=== PATIENT | female | born 1945 | race Caucasian/White ===

== ENCOUNTER 2018-06-29 12:47 | Observation (INO) | payer BC, MEDICARE ==
[2018-06-29] MEDS ORDERED: ACETAMINOPHEN 1,000 MG/100 ML BTL IVPB ONE (13:00)
[2018-06-29] MEDS ORDERED: ONDANSETRON HCL IV 4 MG/2 ML VIAL IVP ONE ×2 (13:00→16:11)
[2018-06-29] MEDS ORDERED: 0.9 % SODIUM CHLORIDE 1000ML 1,000 ML IV ONE ×2 (13:00→14:47)
--- NOTE | 2018-06-29 13:01 | Emergency Department Record ---
History of Present Illness - General Chief complaint: Nausea, Vomiting, Diarrhea Stated complaint: VOMITING,DIZZY, SHAKING Time Seen by Provider: 06/29/18 12:54 Source: Patient Mode of Arrival: Ambulatory Limitations: No limitations - History of Present Illness Initial comments: 73 yo female presents not feeling well for about 5 days. The patient states she has been getting lightheaded and dizzy with standing. She is very nauseated with vomiting the last 2-3 days. She has right lower abdominal pain and pain in the back on the righ. No diarrhea. She feels very shaky and weak. No fevers. No blood in the vomit or stools. No cough, chest pain, or shortness of breath. No focal weakness. She has right lower lumbar pain with some radiation down the leg. No rashes. She states her PO intake the last 48 hours has been minimal. MD complaint: Abdominal pain, Nausea, Vomiting, Other -: Days(s) (5) Description of Vomiting: Watery Location: Other Radiation: Suprapubic, RLQ Severity: Mild Quality: Constant Consistency: Constant Improves with: None Worsens with: Eating, Other (worse symptoms trying to stand up) Context: Other Associated Symptoms: Loss of appetite, Malaise, Nausea/vomiting, Weakness - Related Data Home Medications Medication Instructions Recorded Confirmed Last Taken Hydrocodone/APAP 7.5/325Mg [[place] 1 each PO 06/29/18 Unknown 7.5MG/325Mg] Allergies Allergy/AdvReac Type Severity Reaction Status Date / Time No Known Drug Intolerances Allergy Unknown Unverified 10/01/13 10:12 Allergies: Allergy Unknown Uncoded 10/01/13 10:12 Latex Allergy: Allergy Unknown Uncoded 10/01/13 10:12 Review of Systems Constitutional: Reports: Chills, Malaise, Weakness Eyes: Denies: Eye discharge ENT: Denies: Congestion, Throat pain Respiratory: Denies: Cough, Dyspnea, Hemoptysis, Stridor, Wheezes Cardiovascular: Denies: Chest pain, Edema, Palpitations, Syncope Endocrine: Reports: Fatigue. Denies: Polydipsia, Polyuria Gastrointestinal: Reports: Abdominal pain (suprapubic,RLQ, Rflank), Nausea, Vomiting. Denies: Diarrhea Genitourinary: Denies: Dysuria, Urgency Musculoskeletal: Reports: Arthralgia, Back pain. Denies: Joint swelling, Myalgia Skin: Denies: Bruising, Change in color, Rash Neurological: Reports: Vertigo, Weakness. Denies: Confusion, Headache, Numbness Psychiatric: Denies: Anxiety Hematological/Lymphatic: Denies: Blood Clots, Easy bleeding, Easy bruising, Swollen glands Physical Exam - General General Appearance: Alert, Oriented x3, Cooperative, No acute distress, Other ( Thin frail female in NAD) - Head Head exam: Atraumatic, Normocephalic, Normal inspection Head exam detail: negative: Abrasion, Contusion, Hematoma, Laceration - Eye Eye exam: Normal appearance, PERRL. negative: Conjunctival injection, Scleral icterus - ENT ENT exam: Normal exam, Mucous membranes dry, Normal orophraynx Ear exam: Normal external inspection Nasal Exam: Normal inspection Mouth exam: Normal external inspection - Neck Neck exam: Normal inspection, Full ROM. negative: Lymphadenopathy, Meningismus , Tenderness - Respiratory Respiratory exam: Normal lung sounds bilaterally. negative: Respiratory distress, Rhonchi, Stridor, Wheezes - Cardiovascular Cardiovascular Exam: Regular rate, Normal rhythm, Normal heart sounds - GI/Abdominal GI/Abdominal exam: Soft, Tenderness (tender RLQ, soft, no obvious mass). negative: Normal bowel sounds, Distended, Guarding, Rebound, Rigid - Rectal Rectal exam: Deferred - exam: Deferred - Extremities Extremities exam: Normal inspection. negative: Pedal edema, Tenderness - Back Back exam: Reports: Normal inspection, Paraspinal tenderness, Tenderness (right lower lumbar) - Neurological Neurological exam: Alert, CN II-XII intact, Oriented X3, Other (No PND, she does have diffuse tremors). negative: Motor sensory deficit - Psychiatric Psychiatric exam: Normal affect, Normal mood - Skin Skin exam: Dry, Intact, Normal color, Warm Course - Reevaluation(s) Reevaluation #1: EKG 13:11 NSR rate 79, QTc 496, [place] normal, ST no acute changes, Underlying artifact from shaking 06/29/18 13:17 06/29/18 13:57 The labs were reviewed The CBC demonstrated WBC of 11 The CMP demonstrated HCO3 of 21 and AG of 21 Troponin is negative 06/29/18 13:58 Normal renal function 06/29/18 13:[address] was negative for any acute abnormality 06/29/18 14:00 No improvement of the nausea 06/29/18 14:17 The UA was reviewed. No infection. Ketones noted 06/29/18 14:38 On recheck the patient still has tenderness in the RLQ. No rash. Her nausea and pain remain. She is unsure if she has an appendix. In the past she has ovarian cysts 06/29/18 18:[address] demonstrated a mild appearance of colitis of the transverse, descending and sigmoid colon She still has nausea and some pain so she will be admitted for supportive treatment I JUSTUS Tomas who will admit for vomiting, colitis, dehydration, weakness Medical Decision Making - Lab Data Result diagrams: 06/29/18 13:00 06/29/18 13:00 Disposition Disposition: Admit Clinical Impression: Vomiting, Lightheaded Disposition: Still a Patient at [facility] Decision to Admit: Admit from ER Decision to Admit Date: 06/29/18 Decision to Admit Time: 18:44 Condition: (2) Stable Time of Disposition: 18:44 Quality - Quality Measures Quality Measures: N/A - Blood Pressure Screening Does Patient Have Any of the Following: No Blood Pressure Classification: Hypertensive Reading Systolic Measurement: 151 Diastolic Measurement: 71 Screening for High Blood Pressure: < Pre-Hypertensive BP, F/U Documented > [ [id number]] Pre-Hypertensive Follow-up Interventions: Referral to alternative/primary care provider.
[2018-06-29 13:12] LABS: HEMATOCRIT 39.6 % (35.0-47.0); HEMOGLOBIN 13.3 gm/dl (11.6-16.0); MEAN CELL VOLUME 88.6 fl (81-97); MEAN CORPUSCULAR HEMOGLOBIN 29.8 pg (27-33); MEAN CORPUSCULAR HGB CONC 33.6 g/dl (32-36); MEAN PLATELET VOLUME 9.9 fl (7.4-10.4); PLATELET COUNT 403 K/uL (130-400); RED BLOOD COUNT 4.47 M/uL (3.80-5.40); RED CELL DISTRIBUTION WIDTH 12.2 % (11.5-14.5); WHITE BLOOD COUNT W/O DIFF 11.2 K/uL (4.2-12.2)
[2018-06-29 13:20] LABS: BLOOD UREA NITROGEN 11 mg/dL (8-23); CREATININE 0.7 mg/dL (0.5-0.9); EST GLOMERULAR FILTRATION RATE > 60 mL/min
[2018-06-29 13:21] LABS: TOTAL PROTEIN 7.9 g/dL (6.6-8.7)
[2018-06-29 13:23] LABS: GLUCOSE,RANDOM 154 mg/dL (74-109)
[2018-06-29 13:26] LABS: ALB/GLOB RATIO 1.4 (1.1-1.8); ALBUMIN 4.6 g/dL (4.0-5.0); ALKALINE PHOSPHATASE 99 U/L (45-87); ALT/SGPT 15 U/L (<33); AST/SGOT 18 U/L (10.0-35.0)
[2018-06-29 13:37] LABS: THYROID STIMULATING HORMONE 0.58 uIU/mL (0.270-4.20)
[2018-06-29] MEDS ORDERED: PROMETHAZINE HCL 12.5 MG in 0.9 % SODIUM CHLORIDE 100ML 100 ML IVPB ONE (13:59)
[2018-06-29] MEDS ORDERED: KETOROLAC 30 MG/ML VIAL IM ONE (13:59)
[2018-06-29 14:06] LABS: URINE APPEARANCE CLEAR; URINE BILIRUBIN NEGATIVE (NEGATIVE); URINE BLOOD NEGATIVE (NEGATIVE); URINE COLOR YELLOW; URINE GLUCOSE (UA) NEGATIVE (NEGATIVE); URINE KETONE 40 mg/dL (NEGATIVE); URINE LEUKOCYTE ESTERASE NEGATIVE (NEGATIVE); URINE NITRITE NEGATIVE (NEGATIVE); URINE PROTEIN TRACE (NEGATIVE); URINE UROBILINOGEN 0.2 E.U./dL (0.20 - 1.00)
[2018-06-29] MEDS ORDERED: MORPHINE SULFATE 10 MG/ML VIAL IVP ONE (18:00)
[2018-06-29] MEDS ORDERED: ACETAMINOPHEN 500 MG TABLET PO PRN (18:13)
[2018-06-29] MEDS ORDERED: POTASSIUM CHLORIDE/D5-0.9%NACL 20 MEQ/1,000 ML BAG IV SCH (18:15)
[2018-06-29] MEDS ORDERED: ACETAMINOPHEN 325 MG TAB PO PRN (18:59)
[2018-06-29] MEDS ORDERED: HYDROCODONE/APAP 7.5/325MG TABLET PO PRN (19:00)
[2018-06-29] MEDS ORDERED: TIZANIDINE HCL 4 MG TABLET PO PRN (19:05)
[2018-06-29] MEDS: CIPROFLOXACIN LACTATE/D5W 400 MG/200 ML BAG IVPB SCH (20:11)
[2018-06-29] MEDS: METRONIDAZOLE IVPB 500 MG/100 ML BAG IVPB SCH (21:51)
[2018-06-29] MEDS: ONDANSETRON HCL IV 4 MG/2 ML VIAL IVP PRN (21:55)
[2018-06-29] MEDS: MORPHINE SULFATE 10 MG/ML VIAL IVP PRN (21:57)
[2018-06-29] MEDS: 0.9 % SODIUM CHLORIDE 1000ML 1,000 ML IV PRN (22:03)
[2018-06-30] MEDS: METRONIDAZOLE IVPB 500 MG/100 ML BAG IVPB SCH ×2 (02:48→11:10)
[2018-06-30] MEDS: ONDANSETRON HCL IV 4 MG/2 ML VIAL IVP PRN (02:49)
[2018-06-30] MEDS: MORPHINE SULFATE 10 MG/ML VIAL IVP PRN (02:54)
[2018-06-30] MEDS: CIPROFLOXACIN LACTATE/D5W 400 MG/200 ML BAG IVPB SCH (05:57)
[2018-06-30 06:52] LABS: BLOOD UREA NITROGEN 10 mg/dL (8-23); CREATININE 0.7 mg/dL (0.5-0.9); EST GLOMERULAR FILTRATION RATE > 60 mL/min; GLUCOSE,RANDOM 107 mg/dL (74-109)
--- NOTE | 2018-06-30 07:19 | CT SCAN REPORT ---
EXAM: CT OF THE HEAD WITHOUT CONTRAST HISTORY: VERTIGO WITH NAUSEA AND VOMITING. TECHNIQUE: Routine noncontrast CT examination of the head was obtained. Comparison: None. FINDINGS: The ventricles and subarachnoid spaces are normal in size for age. No area of abnormally increased or decreased attenuation is noted throughout the brain substance. No abnormal extraaxial fluid collection is seen. No focal skull abnormality. The visualized paranasal sinuses and mastoid air cells are clear. The orbits as visualized are unremarkable. IMPRESSION: NEGATIVE NONCONTRAST CT APPEARANCE OF THE HEAD. JOB NUMBER: [id number] MTDD
--- NOTE | 2018-06-30 07:28 | CT SCAN REPORT ---
EXAM: CT OF THE ABDOMEN AND PELVIS WITH CONTRAST HISTORY: NAUSEA AND VOMITING, RIGHT LOWER QUADRANT ABDOMINAL PAIN, PRIOR HYSTERECTOMY. TECHNIQUE: CT of the abdomen and pelvis was obtained with 80 ml Omnipaque 300 intravenous contrast as well as oral contrast. Comparison: None. FINDINGS: Dependent lower lobe atelectasis bilaterally. Unremarkable appearance of the liver, gallbladder, spleen, adrenal glands, and pancreas. Symmetric renal perfusion. No hydronephrosis. Aortoiliac arterial access is calcified and mildly tortuous without aneurysmal dilation. No retroperitoneal lymphadenopathy is evident. Mildly thickened appearance of the colon extending from the mid transverse colon through the sigmoid colon. The remainder of the colon appears non- thickened and noninflamed. No evidence of appendicitis. The stomach and small bowel are not dilated. Oral contrast material reaches the mid to distal small bowel. No evidence of pneumoperitoneum. No significant free fluid. The uterus is absent. Unremarkable appearance of the urinary bladder. Trabecular thickening throughout the majority of the right iliac bone. No definite acute osseous findings. Multilevel degenerative changes of the lumbar spine with prominent disk degeneration at the lowest lumbar levels. IMPRESSION: 1. SUGGESTION OF MILD NONSPECIFIC COLITIS INVOLVING THE DISTAL TRANSVERSE, DESCENDING AND SIGMOID COLON. 2. 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 3. ADDITIONAL CHRONIC AND INCIDENTAL FINDINGS ARE DESCRIBED IN THE BODY OF THE REPORT. JOB NUMBER: [id number] [facility]
--- NOTE | 2018-06-30 08:20 | History and Physical Report ---
DATE: 06/29/2018 at 7 p.m. CHIEF COMPLAINT: Nausea, vomiting for the last 2 days and dizziness which started 3 days ago. She states that she also has back pain which radiates into her right leg and abdominal pain in the right lower quadrant. She states that she has not been feeling well for 5 days but much worse in the last 2-3 days. She is very nauseated and vomiting. She complains of right lower abdominal pain and no diarrhea. She has right lumbar pain, lower back pain which radiates in the right leg. No rashes. She uses [place] 7.5 twice a day for her back pain. She was evaluated in the emergency department by Dr. Soliman, admitted for colitis. CT of the head was done which was negative for acute changes. CT of the abdomen and pelvis with contrast showing colitis. She was admitted to the hospital for IV Cipro and Flagyl. PAST MEDICAL HISTORY: Chronic low back pain with radiation into the right leg. Using [place] 7.5 twice a day. She also has hypercholesterolemia. PAST SURGICAL HISTORY: Hysterectomy with one ovary remaining. SOCIAL HISTORY: Denies any tobacco use, alcohol, or drug use. FAMILY HISTORY: No significant family history. REVIEW OF SYSTEMS: HEENT: No upper respiratory infection symptoms, cough, cold, or congestion. Cardiovascular: No chest pain, palpitations, or arrhythmia. Respiratory: No cough, cold, or congestion. Gastrointestinal: See Chief Complaint. She has right lower quadrant pain with vomiting and nausea. She is a little shaky. Genitourinary: No dysuria, hematuria, frequency, or burning on urination. Musculoskeletal: She has chronic low back pain, using narcotics 7.5 twice a day. Neurological: No CVA, paralysis, or paresthesias. Endocrine: No diabetes or thyroid disease. Skin: No rash or change in moles. PHYSICAL EXAMINATION: VITALS: Height 5 feet 2 inches, weight 98 pounds. Temperature 99.1, pulse 85, blood pressure 151/71, respiratory rate 18, pulse ox 99% on room air. HEENT: Pupils are equal, round, and reactive to light and accommodation. Extraocular muscles are intact. Throat is clear. Nose is clear. Tympanic membranes are allen. NECK: Supple. No jugular venous distention. No hepatojugular reflux. CARDIOVASCULAR: Regular rate and rhythm without murmurs, clicks, rubs, or gallops. RESPIRATORY: Clear to auscultation and percussion. Breath sounds equal bilaterally. ABDOMEN: Tender in the right lower quadrant but soft. Bowel sounds are active. No rebound or rigidity. She has pain in her right back and her right leg. When she lifts up the right leg, it hurts in her back and right hip area. EXTREMITIES: No swelling or edema noted. Full range of motion. SKIN: No abnormalities seen. BREASTS: Exam deferred. GYNECOLOGICAL: Exam deferred. RECTAL: Exam deferred. IMPRESSION: 1. Colitis, diverticulitis. 2. Chronic low back pain with right leg radiculopathy with [place] 7.5 b.i.d. use. 3. Hypercholesterolemia. PLAN: IV Cipro. IV Flagyl. We will continue the [place] and pain control and gradually increase her diet. MTDD
[2018-06-30] MEDS: 0.9 % SODIUM CHLORIDE 1000ML 1,000 ML IV PRN (11:09)
--- NOTE | 2018-06-30 11:50 | Discharge Note ---
VTE H&P Assessment - Risk for VTE Risk for VTE: Yes Risk Level: Low Risk Assessment Date: 06/30/18 Risk Assessment Time: 11:50 VTE Orders Placed or Will Be Placed: Yes Discharge Medications - Discharge Medications Prescriptions: Metronidazole [Flagyl] 500 mg PO Q8HR #30 tablet Ciprofloxacin HCl [Cipro] 500 mg PO Q12HR #14 tablet Home Medications: Ambulatory Orders Atorvastatin Calcium [Lipitor] 20 mg PO QHS 06/29/18 [Last Taken 06/26/18] Hydrocodone/APAP 7.5/325Mg [[place] 7.5MG/325Mg] 1 each PO BID 06/29/18 [Last Taken 06/28/18 \] Tizanidine HCl 4 tab DAILY 06/29/18 [Last Taken 06/26/18] Tizanidine HCl 8 mg PO QPM PRN 06/29/18 [Last Taken 06/26/18] Ciprofloxacin HCl [Cipro] 500 mg PO Q12HR #14 tablet 06/30/18 [Last Taken Unknown] Hydrocodone/APAP 7.5/325Mg [[place] 7.5MG/325Mg] 1 each PO Q12HR PRN tab [Last Taken Unknown] Metronidazole [Flagyl] 500 mg PO Q8HR #30 tablet 06/30/18 [Last Taken Unknown] Discharge Note - Date Date of Discharge Note: 06/30/18 Disposition: Home, Self-Care Condition: (2) Stable Instructions: Diverticulitis (GEN) Additional Instructions: bland diet and low fiber diet for 3 weeks No alcohol while taking antibiotics because could cause vomiting follow up with Dr Campos or Kasia Germain in 5-7 days may need another colonoscopy and her primary can set that up in 3-6 weeks Referrals: KASIA DELGADILLO [Primary Care Provider] - Forms: Patient Portal Access Activity at Discharge: Increase Activity as Tolerated Diet at Discharge: Other (bland low fiber diet for 3 weeks than switch to a high fiber diet)
[2018-06-30] MEDS ORDERED: ENOXAPARIN 40 MG/0.4 ML SYR SQ SCH (12:00)
--- NOTE | 2018-07-03 09:40 | Discharge Summary ---
DATE: 06/30/2018 at 11:59 a.m. DISCHARGE DIAGNOSES: 1. Colitis. 2. Diverticulitis. 3. Chronic low back pain. 4. Hypercholesterolemia. ATTENDING PHYSICIAN: Jose Tomas DO REASON FOR HOSPITALIZATION: Abdominal pain, nausea, vomiting. The patient states that for the last 2 days she has been dizzy and nausea and vomiting started about 2 days ago. The dizziness started 3 days ago. She also complains of low back pain radiating to the right leg. She has right lower quadrant abdominal pain. She has not been feeling well for 5 days. She denies any diarrhea. She has right lumbar pain and lower back pain which radiates into her right leg. She has no rashes. She uses [place] 7.5 twice a day for her back pain followed by her family doctor, Dr. Campos. She was evaluated in the emergency department by Dr. Soliman and admitted for colitis. CT of the head was done which was negative. CT of the abdomen and pelvis with contrast showing colitis. She was also started on IV Cipro and IV Flagyl. SIGNIFICANT FINDINGS: CT of the abdomen revealed nonspecific colitis involving the distal transverse, descending, and sigmoid colon and she also has a suggestion of right iliac bone Paget's disease. She has additional chronic incidental findings that are described in the body of the report. There is calcification of the aortoiliac artery without aneurysmal dilation. WBC 11,200, hemoglobin 13.3. Potassium 3.8. Troponin T was negative. Urine showing dehydration. No infectious problems with the urine. Glucose was 107 on discharge. EKG done in the emergency department showing sinus rhythm. No acute ST-T-wave changes. Borderline QT elongation. THERAPY PROVIDED: The patient was given IV Cipro and IV Flagyl. Pain control. She was feeling much better the next day. Tolerating clear liquids. HOSPITAL COURSE: Improving. CONDITION ON DISCHARGE: Much improved. DISCHARGE INSTRUCTIONS: Follow up with her family doctor, Dr. Campos, and possibly Dr. Kasia Rowan in [place] in the next 5-7 days. We will send her home with Cipro 500 mg b.i.d. for 7 days, Flagyl 500 mg t.i.d. for 7 days. No alcohol while taking the Flagyl. Continue her pain medication of [place] 7.5 b.i.d. She is also to continue her cholesterol medication of Lipitor. [facility]
== END 2018-06-30 13:50 | disposition home or self-care (01) ==
LOC: ER 12:47 → INTOOBSV 18:09 → MEDSURG 18:09
PROVIDERS: ADMIT Emergency Medicine; ATTEND Emergency Medicine
DX: K52.9 Noninfective gastroenteritis and colitis, unspecified (principal); K57.92 Diverticulitis of intestine, part unspecified, without perforation or abscess without bleeding; R11.2 Nausea with vomiting, unspecified; R19.7 Diarrhea, unspecified; R42 Dizziness and giddiness; E78.00 Pure hypercholesterolemia, unspecified; M54.5 Low back pain
CPT/HCPCS: 70450; 74177; 80048; 80053; 81003; 84443; 84484; 85027; 93005; 93010; 96361; 96365; 96366; 96372; 96375; 99217; 99220; 99285; J1650; J1885; J2270; J2405; J2550; J7030

== ENCOUNTER 2018-07-01 22:16 | Observation (INO) | payer BC, MEDICARE ==
[2018-07-01] MEDS ORDERED: ONDANSETRON HCL IV 4 MG/2 ML VIAL IVP ONE (22:33)
[2018-07-01] MEDS ORDERED: HYOSCYAMINE SULFATE ODT 0.125 MG TAB.SUBL SL ONE (22:33)
--- NOTE | 2018-07-01 22:37 | Emergency Department Record ---
History of Present Illness - General Chief complaint: Vomiting Stated complaint: VOMITING Time Seen by Provider: 07/01/18 22:28 Source: Patient Mode of Arrival: Wheelchair Limitations: No limitations - History of Present Illness Initial comments: 73 yo female returns to the emergency department for evaluation of recurrent nausea/vomiting and abdominal pain following recent admission for colitis . Patient was treated with Cipro and Flagyl, discharged home the following morning as her symptoms had improved. Patient's vomiting symptoms returned earlier today. Patient reports that she was taking [place] for her pain symptoms at home when her nausea/vomiting symptoms returned. MD complaint: Abdominal pain, Nausea, Vomiting Onset/Timin -: Hour(s) Description of Vomiting: Bilious Associated Abdominal Pain: Yes Location: RLQ, Periumbilcal Radiation: Back Severity: Severe Severity scale (1-10): 9 Quality: Aching Consistency: Constant, Getting worse Improves with: None Worsens with: Vomiting Context: Recent anitbiotic use Associated Symptoms: Nausea/vomiting - Related Data Previous Rx's Medication Instructions Recorded Ciprofloxacin HCl [Cipro] 500 mg PO Q12HR #14 tablet 06/30/18 Hydrocodone/APAP 7.5/325Mg [[place] 1 each PO Q12HR PRN tab 06/30/18 7.5MG/325Mg] Metronidazole [Flagyl] 500 mg PO Q8HR #30 tablet 06/30/18 Allergies Allergy/AdvReac Type Severity Reaction Status Date / Time No Known Drug Intolerances Allergy Unknown PT UNSURE Verified 07/01/18 23:13 OF REACTION Allergies: Allergy Unknown PT UNSURE Uncoded 07/01/18 23:13 OF REACTION Latex Allergy: Allergy Unknown PT UNSURE Uncoded 07/01/18 23:13 OF REACTION Travel Screening - Travel/Exposure Within Last 30 Days Have you traveled within the last 30 days?: No - Travel Symptoms Symptom Screening: Vomiting Review of Systems Constitutional: Denies: Chills, Fever, Malaise, Night sweats Eyes: Denies: Eye discharge, Eye pain ENT: Denies: Congestion, Ear pain, Epistaxis Respiratory: Denies: Cough, Dyspnea Cardiovascular: Denies: Chest pain, Dyspnea on exertion Endocrine: Denies: Fatigue, Heat or cold intolerance Gastrointestinal: Reports: Abdominal pain, Nausea, Vomiting Genitourinary: Denies: Incontinence, Retention Musculoskeletal: Denies: Arthralgia, Back pain Skin: Denies: Bruising, Change in color Neurological: Denies: Abnormal gait, Confusion, Headache, Seizure Psychiatric: Denies: Anxiety Hematological/Lymphatic: Denies: Anemia, Blood Clots Past Medical History - SOCIAL HISTORY Smoking Status: Never smoker Alcohol Use: None Drug Use: None - RESPIRATORY Hx Respiratory Disorders: No - CARDIOVASCULAR Hx Cardio Disorders: No - NEURO Hx Neuro Disorders: No - GI Hx GI Disorders: Yes Hx Liver Disease: Yes Hx Wt Loss/Wt Gain: Yes - Hx Genitourinary Disorders: No - ENDOCRINE Hx Endocrine Disorders: No - MUSCULOSKELETAL Hx Musculoskeletal Disorders: Yes Comment:: DDD - PSYCH Hx Psych Problems: No - HEMATOLOGY/ONCOLOGY Hx Hematology/Oncology Disorders: No Family Medical History Any Significant Family History?: Yes Hx Cancer: Brother/Sister Physical Exam - General General Appearance: Alert, Oriented x3, Cooperative, Moderate distress ( Actively dry-heaving on examination, appears uncomfortable on examination.) Limitations: No limitations - Head Head exam: Atraumatic, Normocephalic, Normal inspection Head exam detail: negative: Abrasion, Contusion, Louis's sign, General tenderness, Hematoma, Laceration - Eye Eye exam: Normal appearance. negative: Conjunctival injection, Periorbital swelling, Periorbital tenderness, Scleral icterus - ENT Ear exam: negative: Auricular hematoma, Auricular trauma Nasal Exam: negative: Active bleeding, Discharge, Dried blood, Foreign body Mouth exam: negative: Drooling, Laceration, Muffled voice, Tongue elevation - Neck Neck exam: Normal inspection. negative: Meningismus, Tenderness - Respiratory Respiratory exam: Normal lung sounds bilaterally. negative: Rales, Respiratory distress, Rhonchi, Stridor - Cardiovascular Cardiovascular Exam: Regular rate, Normal rhythm, Normal heart sounds - GI/Abdominal GI/Abdominal exam: Soft, Tenderness (Moderate TTP/guarding to the RUQ, RLQ on examination.). negative: Rebound, Rigid - Rectal Rectal exam: Deferred - exam: Deferred - Extremities Extremities exam: Normal inspection. negative: Pedal edema, Tenderness - Back Back exam: Denies: CVA tenderness (R), CVA tenderness (L) - Neurological Neurological exam: Alert, Normal gait, Oriented X3 - Psychiatric Psychiatric exam: Normal affect, Normal mood - Skin Skin exam: Normal color. negative: Abrasion Type of lesion: negative: abrasion Course Vital Signs 07/01/18 22:24 Pulse Rate 69 Respiratory 26 H Rate Blood Pressure 183/91 Pulse Ox 100 - Reevaluation(s) Reevaluation #1: 07/01/18 22:59 Laboratory studies were reviewed and are grossly unremarkable except for: CO2 [address] AG 20[address] UA pending. CT Abdomen/Pelvis was reviewed from 06/29/18: Bowel wall thickening of the mid-transverse, descending, and sigmoid colon Paget's Disease right iliac crest PVD iliac vessels. Patient was updated on all results, will re-admit for further treatment of her intractable nausea/vomiting. Reevaluation #2: 07/02/18 06:49 Case was discussed with Dr. Tomas, will accept admission at this time. Medical Decision Making - Lab Data Result diagrams: 07/01/18 22:22 07/01/18 22:22 Disposition Disposition: Admit Clinical Impression: Colitis Nausea & vomiting Qualifiers: Vomiting type: unspecified Vomiting Intractability: intractable Qualified Code( s): R11.2 - Nausea with vomiting, unspecified Disposition: Still a Patient at [facility] Decision to Admit: Admit from ER Decision to Admit Date: 07/01/18 Decision to Admit Time: 23:03 Condition: (2) Stable Time of Disposition: 23:03 Quality - Quality Measures Quality Measures: N/A - Blood Pressure Screening Does Patient Have Any of the Following: Active Dx of HTN Blood Pressure Classification: Hypertensive Reading Systolic Measurement: 183 Diastolic Measurement: 91 Screening for High Blood Pressure: Patient Exclusion, Hx of HTN [G9744]
[2018-07-01 22:40] LABS: BASO % 0.2 % (0-6); EOS % 0.1 % (0-6); GRAN % 74.5 % (47-80); HEMOGLOBIN 13.2 gm/dl (11.6-16.0); LYMPH % 18.8 % (16-45); MEAN CELL VOLUME 87.2 fl (81-97); MEAN CORPUSCULAR HEMOGLOBIN 30.3 pg (27-33); MEAN CORPUSCULAR HGB CONC 34.7 g/dl (32-36); MEAN PLATELET VOLUME 9.9 fl (7.4-10.4); MONO % 6.4 % (0-9); PLATELET COUNT 371 K/uL (130-400); RED BLOOD COUNT 4.36 M/uL (3.80-5.40); RED CELL DISTRIBUTION WIDTH 12.1 % (11.5-14.5); WHITE BLOOD COUNT W/O DIFF 10.9 K/uL (4.2-12.2)
[2018-07-01] MEDS ORDERED: 0.9 % SODIUM CHLORIDE 1000ML 1,000 ML IV SCH (22:45)
[2018-07-01 22:51] LABS: BLOOD UREA NITROGEN 7 mg/dL (8-23); CREATININE 0.7 mg/dL (0.5-0.9); EST GLOMERULAR FILTRATION RATE > 60 mL/min
[2018-07-01 22:52] LABS: LIPASE 18 U/L (13-60); TOTAL PROTEIN 7.7 g/dL (6.6-8.7)
[2018-07-01 22:54] LABS: GLUCOSE,RANDOM 127 mg/dL (74-109)
[2018-07-01 22:56] LABS: ALB/GLOB RATIO 1.4 (1.1-1.8); ALBUMIN 4.5 g/dL (4.0-5.0); ALKALINE PHOSPHATASE 91 U/L (45-87); ALT/SGPT 15 U/L (<33); AST/SGOT 23 U/L (10.0-35.0)
[2018-07-01] MEDS ORDERED: MORPHINE SULFATE 10 MG/ML VIAL IVP ONE (22:56)
[2018-07-01] MEDS ORDERED: TIZANIDINE HCL 4 MG TABLET PO PRN (23:59)
[2018-07-02 00:24] LABS: URINE APPEARANCE CLEAR; URINE BILIRUBIN NEGATIVE (NEGATIVE); URINE BLOOD NEGATIVE (NEGATIVE); URINE COLOR YELLOW; URINE GLUCOSE (UA) NEGATIVE (NEGATIVE); URINE KETONE NEGATIVE (NEGATIVE); URINE LEUKOCYTE ESTERASE NEGATIVE (NEGATIVE); URINE NITRITE NEGATIVE (NEGATIVE); URINE PROTEIN NEGATIVE (NEGATIVE); URINE UROBILINOGEN 0.2 E.U./dL (0.20 - 1.00)
[2018-07-02] MEDS: 0.9 % SODIUM CHLORIDE 1000ML 1,000 ML IV PRN ×2 (00:32→08:24)
[2018-07-02] MEDS: ONDANSETRON HCL IV 4 MG/2 ML VIAL IVP PRN ×2 (00:40→08:22)
[2018-07-02] MEDS: HYDROCODONE/APAP 7.5/325MG TABLET PO PRN ×2 (00:41→13:13)
[2018-07-02] MEDS ORDERED: DIPHENHYDRAMINE HCL 25 MG CAPSULE PO SCH (01:37)
[2018-07-02] MEDS: METRONIDAZOLE 250 MG TABLET PO SCH ×2 (06:22→13:15)
[2018-07-02] MEDS ORDERED: METHYLPREDNISOLONE PF 125MG/VIAL IVP ONE (06:45)
[2018-07-02] MEDS ORDERED: TIZANIDINE HCL 4 MG TABLET PO SCH (10:00)
[2018-07-02] MEDS ORDERED: CIPROFLOXACIN HCL 500 MG TABLET PO SCH (10:00)
--- NOTE | 2018-07-02 14:10 | Discharge Note ---
VTE H&P Assessment - Risk for VTE Risk for VTE: Yes Risk Level: Moderate Risk Assessment Date: 07/02/18 Risk Assessment Time: 14:11 VTE Orders Placed or Will Be Placed: Yes Discharge Medications - Discharge Medications Prescriptions: Ondansetron HCl [Zofran] 4 mg PO Q4HR #14 tablet Prednisone [Prednisone 10Mg] 10 mg PO ASDIR #30 tab Home Medications: Ambulatory Orders Atorvastatin Calcium [Lipitor] 20 mg PO QHS 06/29/18 [Last Taken 07/01/18] Tizanidine HCl 4 tab DAILY 06/29/18 [Last Taken 07/01/18] Tizanidine HCl 8 mg PO QPM PRN 06/29/18 [Last Taken 07/01/18] Ciprofloxacin HCl [Cipro] 500 mg PO Q12HR #14 tablet 06/30/18 [Last Taken ] Hydrocodone/APAP 7.5/325Mg [[place] 7.5MG/325Mg] 1 each PO Q12HR PRN tab [Last Taken 07/01/18] Metronidazole [Flagyl] 500 mg PO Q8HR #30 tablet 06/30/18 [Last Taken 07/01/18] Ondansetron HCl [Zofran] 4 mg PO Q4HR #14 tablet 07/02/18 [Last Taken Unknown] Prednisone [Prednisone 10Mg] 10 mg PO ASDIR #30 tab 07/02/18 [Last Taken Unknown ] Discharge Note - Date Date of Discharge Note: 07/02/18 Condition: (2) Stable Forms: Patient Portal Access
[2018-07-02] MEDS ORDERED: ENOXAPARIN 40 MG/0.4 ML SYR SQ SCH (14:15)
--- NOTE | 2018-07-02 14:57 | Discharge Note ---
VTE H&P Assessment - Risk for VTE Risk for VTE: Yes Risk Level: Moderate Risk Assessment Date: 07/02/18 Risk Assessment Time: 14:11 VTE Orders Placed or Will Be Placed: Yes Discharge Medications - Discharge Medications Prescriptions: Ondansetron HCl [Zofran] 4 mg PO Q4HR #14 tablet Prednisone [Prednisone 10Mg] 10 mg PO ASDIR #30 tab Home Medications: Ambulatory Orders Atorvastatin Calcium [Lipitor] 20 mg PO QHS 06/29/18 [Last Taken 07/01/18] Tizanidine HCl 4 tab DAILY 06/29/18 [Last Taken 07/01/18] Tizanidine HCl 8 mg PO QPM PRN 06/29/18 [Last Taken 07/01/18] Ciprofloxacin HCl [Cipro] 500 mg PO Q12HR #14 tablet 06/30/18 [Last Taken ] Hydrocodone/APAP 7.5/325Mg [[place] 7.5MG/325Mg] 1 each PO Q12HR PRN tab [Last Taken 07/01/18] Metronidazole [Flagyl] 500 mg PO Q8HR #30 tablet 06/30/18 [Last Taken 07/01/18] Ondansetron HCl [Zofran] 4 mg PO Q4HR #14 tablet 07/02/18 [Last Taken Unknown] Prednisone [Prednisone 10Mg] 10 mg PO ASDIR #30 tab 07/02/18 [Last Taken Unknown ] Discharge Note - Date Date of Discharge Note: 07/02/18 Condition: (2) Stable Additional Instructions: 2 Activity: 2 Diet: 2 Consults: [] 2 Follow Up: [] 2 Dressing/Wound Care: (Type) (Change) 2 Additional: [] FOLLOW UP WITH FAMILY dR IN 2-5 DAYS DIET TOLERATED Prescriptions: Ondansetron HCl [Zofran] 4 mg PO Q4HR #14 tablet Prednisone [Prednisone 10Mg] 10 mg PO ASDIR #30 tab Forms: Patient Portal Access
[2018-07-02] MEDS ORDERED: ONDANSETRON 4 MG ODT TABLET SL ONE (15:01)
[2018-07-02] MEDS ORDERED: ATORVASTATIN 20 MG TABLET PO SCH (22:00)
--- NOTE | 2018-07-03 10:10 | Discharge Summary ---
DATE OF ADMISSION: 07/01/2018 DATE OF DISCHARGE: 07/02/2018 at 2:14 p.m. Attending physician: Jose Tomas DO DISCHARGE DIAGNOSES: 1. Colitis. 2. Diverticulitis. 3. Chronic low back pain. 4. Nausea and vomiting. REASON FOR HOSPITALIZATION: This 73-year-old female returned after 24 hours being discharged from [facility]. It is the same thing; she was having more nausea, but did not have any medications for it. The pain was not too bad. She said that the nausea was bothering her. She came back and saw Dr. Garrett, who put her in the hospital for observation. SIGNIFICANT FINDINGS: Laboratory unremarkable. No significant changes. White count is 10,900, the potassium is 3.4, BUN is 7, creatinine is 0.7, anion gap is 20. Carbon dioxide is 20 and her sugar is 127, sodium is 138. Urine is negative. THERAPY PROVIDED: We continued her home therapy of [place], no other pain medications were given. She was given Zofran IV and a clear liquid diet for breakfast, a soft diet for lunch, doing fairly well, still complaining of her chronic low back pain, which radiates into the right leg. At this point, I feel that she can safely go home and continue, I also gave her one dose of Solu-Medrol IV 125 mg and that seemed to have helped her abdominal pain significantly. We will continue a course of prednisone, which also may help the back pain. DISCHARGE INSTRUCTIONS: Follow up with Dr. Kasia Rowan, a doctor in [place]. We will continue with her home medications Cipro 500 mg twice a day, Flagyl 500 mg 3 times a day, Zofran will be added on 4 mg q.4 hours p.r.n. and prednisone taper from 40 mg for 3 days, 30 mg for 3 days, 20 mg for 3 days, and 10 mg for 3 days, she will have 10 mg pills. She is to follow up at her family doctor in 5 to 7 days. NOTE: I used the H&P from the first admission. MTDD
== END 2018-07-02 15:20 | disposition home or self-care (01) ==
LOC: ER 22:16 → MEDSURG 23:44 → INTOOBSV 23:44
PROVIDERS: ADMIT Emergency Medicine; ATTEND Emergency Medicine
DX: K52.9 Noninfective gastroenteritis and colitis, unspecified (principal); K57.92 Diverticulitis of intestine, part unspecified, without perforation or abscess without bleeding; M54.5 Low back pain; K76.9 Liver disease, unspecified
CPT/HCPCS: 80053; 81003; 83690; 85025; 96374; 96375; 99217; 99219; 99285; J1650; J2270; J2405; J2930; J7030